=== PATIENT | male | born 1990 | race Caucasian/White ===

== ENCOUNTER 2024-03-07 14:41 | Emergency (ER) | payer BC, SELFPAY ==
[2024-03-07 14:43] VITALS: BP 143/80; PULSE 106; RESP 16; TEMP 36.6; O2SAT 97
--- NOTE | 2024-03-07 14:47 | ECG_ITS ---
Test Date: 2024-03-07 14:52:23 Measurements Intervals [place] Rate: 102 P: 47 NE: 145 QRS: 46 QRSD: 93 T: 48 QT: 323 QTc: 423 Interpretive Statements SINUS TACHYCARDIA OTHERWISE NORMAL ECG No previous ECG available for comparison Electronically Signed On 03-08-2024 11:06:23 CDT by Jesus Serrano M.D.
[2024-03-07 15:11] VITALS: BP 112/88; PULSE 97; RESP 16; O2SAT 95
--- NOTE | 2024-03-07 15:27 | ED.GENADULT ---
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 He was holding the lead to his marine pipe welder when he extends shock and his left hand. Patient had cramping his left hand and gripped the for approximately 10 seconds before letting go. He is not having chest pain palpitations loss of consciousness. No wounds or injuries to his hands or feet. No other complaints. Related Data Allergies Allergy/AdvReac Type Severity Reaction Status Date / Time No Known Allergies Allergy Verified 03/07/24 15:19 [facility] Family History Family History (Updated 03/04/16 @ 23:19 by DOCTOR UNKNOWN) Mother Family history of diabetes mellitus in first degree relative Social History Social History Smoking status: Never smoker Alcohol intake: current Exam Narrative: APPEARANCE: No apparent distress. Head: atraumatic. EYES: EOMI, NOSE: Atraumatic NECK: Trachea midline RESPIRATORY: No increased rate of breathing clear auscultation CARDIOVASCULAR: RRR, no peripheral edema ABDOMINAL: Non-distended MUSCULOSKELETAl: No obvious deformities NEURO: Alert. 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 EKG normal. No signs of serious electrical injury. Patient discharged. patient is requesting a work note. Independent EKG interpretation: Rhythm [sinus], Rate [102], [place] -[normal], [place] -[normal], QRS [narrow], QTC [normal], T waves -[negative for concerning inversions], ST Segments - [Negative for concerning elevations] Final interpretations: [Normal Sinus Rhythm] Vital Signs Vital Signs: Vital Signs Temperature 97.8 F 03/07/24 14:43 Pulse Rate 106 H 03/07/24 14:43 Respiratory Rate 16 03/07/24 14:43 Blood Pressure 143/80 H 03/07/24 14:43 Pulse Oximetry 97 03/07/24 14:43 Temperature 97.8 F 03/07/24 14:43 Pulse Rate 97 03/07/24 15:11 Respiratory Rate 16 03/07/24 15:11 Blood Pressure 112/88 03/07/24 15:11 Pulse Oximetry 95 03/07/24 15:11 Discharge Plan Discharge Clinical Impression: Electric shock Patient Disposition: Home, Self-Care Condition: Stable Instructions: Antibiotic Form Additional Instructions: Please wear appropriate protective equipment while using a marine 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 Please follow-up with your primary care physician Follow-up/Referrals: Huber,Izzy Perez MD [Primary Care Provider] - Stand Alone Forms: Work/School Release IP
[2024-03-07 15:40] VITALS: BP 121/66; PULSE 99; RESP 15; TEMP 36.6; O2SAT 95
== END 2024-03-07 15:48 | disposition home or self-care (01) ==
LOC: ANHED 15:43
PROVIDERS: Emergency Provider Emergency Medicine; PCP Family Medicine
DX: T75.4XXA Electrocution, initial encounter (principal); W86.8XXA Exposure to other electric current, initial encounter; Y99.0 Civilian activity done for income or pay
CPT/HCPCS: 93005; 99283